=== PATIENT | male | born 1960 | race Caucasian/White ===

== ENCOUNTER → 2019-01-28 | Outpatient (CLI) | payer OTHER ==
[2015-12-06 15:01] VITALS: BP 108/71
[~2019-01-28] MED LIST: ALBUTEROL SULFATE 2.5 MG/3 ML NEBU. NEB ONE
--- NOTE | 2019-01-28 16:06 | RAD ---
Chest radiograph 01/28/2019 12:00 AM INDICATION: 12/03/2015 COMPARISON: COPD TECHNIQUE: Frontal and lateral views of the chest are provided. FINDINGS: The cardiomediastinal silhouette is within normal limits. There are no pleural effusions. There is no pulmonary vascular congestion. There is no pneumothorax. The lungs are clear. Mild interstitial changes appears stable suggestive of underlying COPD. No significant osseous abnormality is identified. IMPRESSION: COPD changes without acute airspace consolidation. Electronically signed by: Genesis Elena MD (01/28/2019 4:03 PM) [facility]
== END | disposition home or self-care (01) ==
LOC: PF 10:39
PROVIDERS: ATTEND Internal Medicine
DX: Z02.71 Encounter for disability determination (principal); J44.9 Chronic obstructive pulmonary disease, unspecified
CPT/HCPCS: 71046; 94060; 94640; J7613